=== PATIENT | female | born 1975 | race Caucasian/White ===

== ENCOUNTER 2024-10-24 18:03 | Emergency (ER) | payer SELFPAY ==
[2024-10-24 18:17] VITALS: BP 145/98
[2024-10-24 18:50] VITALS: BMI 30.4
[2024-10-24 18:58] LABS: % Basophils 0.3 % (0-2); % Immature Granulocytes 0.3 % (0-0.5); % Lymphocytes 31.2 % (20.5-51.1); % Monocytes 8.9 % (1.7-9.3); % Neutrophils 57.3 % (42.2-75.2); Absolute Eosinophils 0.1 10^3/uL (0-0.7); Absolute Monocytes 0.6 10^3/uL (0.1-0.6); Absolute Neutrophils 3.7 10^3/uL (1.4-6.5); Hematocrit 40.6 % (37.0-47.0); Hemoglobin 14.6 g/dL (12.0-16.0); Mean Corpuscular Hgb 32.1 pg (27.0-31.0); Mean Corpuscular Volume 89.2 fL (81.0-99.0); Mean Platelet Volume 9.7 fL (7.4-10.4); Nucleated Red Blood Cells % 0 %; Platelet Count 236 10^3/uL (130-400); Red Blood Cell Count 4.55 10^6/uL (4.20-5.40); Red Cell Dist. Width 12.1 % (11.5-14.5); White Blood Cell Count 6.4 10^3/uL (4.8-10.8)
[2024-10-24 19:01] LABS: Urine Albumin 1+ (Neg - Trace); Urine Bilirubin Negative (Negative); Urine Character Clear (Clear); Urine Color Yellow; Urine Glucose Negative (Negative); Urine Ketone Negative (Negative); Urine Leukocyte Negative (Negative); Urine Nitrite Negative (Negative); Urine Occult Blood 1+ (Negative); Urine Specific Gravity 1.015 (<1.030); Urine Urobilinogen 2+ (Neg - 1+); Urine pH 6.5 (5.0-9.0)
[2024-10-24 19:11] LABS: ALT (SGPT) 24 U/L (0-35); AST (SGOT) 27 U/L (14-36); Albumin 4.9 g/dl (3.5-5.0); Alkaline Phosphatase 52 U/L (38-126); Blood Urea Nitrogen 18 mg/dl (7-17); Calcium 9.5 mg/dl (8.4-10.2); Carbon Dioxide 27 mmol/L (22-30); Chloride 103 mmol/L (98-107); Estimated Creatinine Clearance 76 ml/min; Glucose 103 mg/dl (70-99); Potassium 4.1 mmol/L (3.5-5.1); Sodium 142 mmol/L (135-145); Total Bilirubin 1.6 mg/dl (0.2-1.3); Total Protein 8.1 g/dl (6.3-8.2); eGFR > 60.00
[2024-10-24 19:22] LABS: Urine Amorphous Seen; Urine Bacteria Few (Negative); Urine Mucus Few; Urine Red Blood Cell 0-2 /HPF (0-2); Urine Squamous Cell 21-25 /LPF (Few); Urine White Cell 0-2 /HPF (0-5)
[2024-10-24] MEDS: TYLENOL 1000 MG PO (20:10)
[2024-10-24 22:12] VITALS: BP 129/89
[2024-10-24] MEDS: MOTRIN 800 MG PO (22:46)
[2024-10-24 23:00] VITALS: BP 147/103
--- NOTE | 2024-10-24 23:15 | ED.GENMED ---
History of Present Illness
<Rosalba Caldera NP - Last Filed: 10/26/24 22:42>
General
Chief Complaint: Flank Pain
Source: patient
Exam Limitations: none
Time Seen by Provider: 10/24/24 18:46
Nursing documentation reviewed up to this point in time: agreed with
History of Present Illness
History of Present Illness:
Patient to ED wtih complaint of left flank pain. States she developed buring with urination, frequency approx 1 week ago. She completed a course of Macrobid but states she now feels flank pain. She is concerned for Kidney infection. Denies
fever/chills. No history of kidney stones. Pain is worse with position changes. Brought self to ED for eval. Denies fever/chills n/v/d.
Past History
<Rosalba Caldera NP - Last Filed: 10/26/24 22:42>
Past History
ED Past Medical History: Asthma, GERD and Other (RA arthritis, asthma, cholecystectomy, carpal tunnel repair, exploratory laparoscopy, status post )
ED Past Surgical History: Cholecystectomy, (X 2), Gynecological (Ablation Uterine, Endocervical mass removed benign) and Orthopedic (Left shoulder rotator cuff, Right carpal tunnel)
Social History
Tobacco: Non-smoker
Alcohol: Occasional
Personal:
Living: with family
Family History
Family History: Other (Daughter with CBID. Dad with diabetes and hyperlipidemia. Mother with hypertension)
Review of Systems
<Rosalba Caldera NP - Last Filed: 10/26/24 22:42>
Review of Systems
Allergies reviewed?: Yes
All Other Systems: ROS reviewed and negative except as documented in HPI and ROS
Constitutional: Reports no symptoms
EENT: Reports no symptoms
Respiratory: Reports no symptoms
Cardiac: Reports no symptoms
ABD/GI: Reports no symptoms
: Reports flank pain (left flank pain)
Skin: Reports no symptoms
Neurological: Reports no symptoms
Psychiatric: Reports no symptoms
Phy Exam
<Rosalba Caldera NP - Last Filed: 10/26/24 22:42>
General Physical Exam
General Presentation: mild distress
General age: appears stated age
General Skin: warm and dry
General Habitus: normal
General Mental: alert
Gastrointestinal Exam
Gastrointestinal Exam: non tender and soft
Musculoskeletal Exam
Musculoskeletal Exam: neuro vasc intact and other (Left back and flank pain. Pain escalates wtih movement.)
Skin Exam
Skin Exam: normal color and warm/dry
Psychiatric Exam
Psychiatric Exam: normal mood/affect
Course
<Rosalba Caldera [employer]DO[employer] AD[employer]URE LEADER - Last Filed: 10/26/24 22:42>
Orders/Labs/Results
Orders:
Orders
10/24/24 18:47
Complete Blood Count/With Diff Urgent
Comprehensive Metabolic Panel Urgent
Urinalysis Reflex To Culture Urgent
Date Specimen was Collected: 10/24/24
Time Specimen was Collected: 18:23
Urine Microscopic Reflex Cult Urgent
10/24/24 19:28
CT Abd/pel Without Iv Or Oral Urgent
Comment:
Reason For Exam: left flank pain
10/24/24 20:06
Acetaminophen [Tylenol] 1,000 mg PO NOW STA
10/24/24 22:16
Ibuprofen [Motrin] 800 mg PO NOW STA
10/24/24 22:17
Pelvis (Non Obstetric) US [US Pelvis Only (non-obstetric)] Urgent
Comment:
Reason For Exam: pain
10/24/24 22:36
Ibuprofen [Motrin] 800 mg PO NOW STA
Abnormal Lab Results
10/24/24
18:47
MCH 32.1 H pg
(27.0-31.0)
BUN 18 H mg/dl
(7-17)
Glucose 103 H mg/dl
(70-99)
Total Bilirubin 1.6 H mg/dl
(0.2-1.3)
Ur Occult Blood Reflex 1+ A
(Negative)
Urine Urobilinogen 2+ A
(Neg - 1+)
Urine Bacteria (Reflex) Few A
(Negative)
Urine Albumin (Reflex) 1+ A
(Neg - Trace)
10/24/24 18:47
10/24/24 18:47
Vital Signs
Initial and Last Documented VS:
Initial Vital Signs
Temp Pulse Resp BP Pulse Ox
98.3 F 84 16 145/98 98
10/24/24 18:17 10/24/24 18:17 10/24/24 18:17 10/24/24 18:17 10/24/24 18:17
Last Documented Vital Signs
Temp Pulse Resp BP Pulse Ox
98.3 F 84 16 138/91 98
10/24/24 18:17 10/24/24 18:17 10/24/24 18:17 10/25/24 00:54 10/25/24 00:47
<Brandie Valdes, DO - Last Filed: 10/25/24 00:40>
Orders/Labs/Results
Orders:
Orders
10/24/24 18:47
Complete Blood Count/With Diff Urgent
Comprehensive Metabolic Panel Urgent
Urinalysis Reflex To Culture Urgent
Date Specimen was Collected: 10/24/24
Time Specimen was Collected: 18:23
Urine Microscopic Reflex Cult Urgent
10/24/24 19:28
CT Abd/pel Without Iv Or Oral Urgent
Comment:
Reason For Exam: left flank pain
10/24/24 20:06
Acetaminophen [Tylenol] 1,000 mg PO NOW STA
10/24/24 22:16
Ibuprofen [Motrin] 800 mg PO NOW STA
10/24/24 22:17
Pelvis (Non Obstetric) US [US Pelvis Only (non-obstetric)] Urgent
Comment:
Reason For Exam: pain
10/24/24 22:36
Ibuprofen [Motrin] 800 mg PO NOW STA
Abnormal Lab Results
10/24/24
18:47
MCH 32.1 H pg
(27.0-31.0)
BUN 18 H mg/dl
(7-17)
Glucose 103 H mg/dl
(70-99)
Total Bilirubin 1.6 H mg/dl
(0.2-1.3)
Ur Occult Blood Reflex 1+ A
(Negative)
Urine Urobilinogen 2+ A
(Neg - 1+)
Urine Bacteria (Reflex) Few A
(Negative)
Urine Albumin (Reflex) 1+ A
(Neg - Trace)
10/24/24 18:47
10/24/24 18:47
Vital Signs
Initial and Last Documented VS:
Initial Vital Signs
Temp Pulse Resp BP Pulse Ox
98.3 F 84 16 145/98 98
10/24/24 18:17 10/24/24 18:17 10/24/24 18:17 10/24/24 18:17 10/24/24 18:17
Last Documented Vital Signs
Temp Pulse Resp BP Pulse Ox
98.3 F 84 16 138/91 98
10/24/24 18:17 10/24/24 18:17 10/24/24 18:17 10/25/24 00:54 10/25/24 00:47
<Rosalba Caldera NP - Last Filed: 10/26/24 22:42>
*Radiology
Radiology exam reviewed: radiology read reviewed
*Pulse Oximetry
Patient hypoxic: no
*Critical Care Note
Total Time (30-74mins, 75-104mins- exclusive of procedures): Not Applicable
<Rosalba Caldera NP - Last Filed: 10/26/24 22:42>
Update Note
Update Note:
Patient to ED wt complaint of left flank pain. She treated self for suspected UTI 1 week ago with course of macrobid. Now reports flank pain. CT results reviewed with her. No findings to explain her pain. SHe now reports ongoing pelvic pain.
States she was treated for an endocervical lesion a few years ago and is concerned that there is an issue in the pelvis causing her pain. SHe states she did not do the follow up visits as recommended. I reviewed the CT report with her and noted
that there were no concerning findings that would explain her pain. Labs normal. UA without evidence of UTI. Will send for pelvic US. She is aware that she will still need to follow up with her talend developer.
Her exam reveals left back and flank pain that is worse with movement. Hurts to sit, change postitions, twist. I suggested to her that the pain was related to a musculoskeletal issue but she is convinced that this is not the case. She does have a
history of RA but states she doesnt get back pain. Given Tylenol in ED without improvement. She was just given a dose of Ibuprofen. Will continue on with plan for US.
ED Attending Note
<Rosalba Caldera NP - Last Filed: 10/26/24 22:42>
-
Portions of this chart may have been created with voice recognition software.� Occasional wrong word or��sound alike� substitutions may have occurred due to the inherent limitations of voice recognition software.
<Brandie Valdes DO - Last Filed: 10/25/24 00:40>
ED Attending Note
Patient seen and examined by attending physician: Yes
I performed the substantive portion of visit, reviewed & personally made and approve the management plan that is documented in note by myself or EVA.: Yes
I performed a history and physical exam of patient and discussed management with resident, I reviewed resident's note and agree with documented findings and plan of care.: Yes
ED Attending Note:
49-year-old female presenting to the emergency for left flank pain. Symptoms have been present for the past week, worse with movement. Patient's primary concern is for some underlying renal infection, urine infection. Patient seen by EVA prior to
my assessment with extensive workup, underlying suspicion for musculoskeletal quality to symptoms. Vital signs within normal limits. Reproducible tenderness to the flank region. Urine without sign of infection, laboratory analysis unremarkable.
Patient had CT abdominal imaging, without acute process. On EVA reassessment, now complaining of pelvic discomfort. Denies any discharge. Patient signed out to me pending ultrasound imaging of the pelvis.
Ultrasound without any acute process. On my assessment, patient is resting comfortably, no acute distress. Mild tenderness to the left flank, otherwise nontoxic. No tenderness to abdomen. Continue to suspect musculoskeletal etiology to pain.
Ultimately feel stable for discharge with supportive therapy outpatient, PCP follow-up. Return precautions discussed.
Discharge Plan
Departure
Patient Disposition: Home (Routine Discharge)
Date of Disposition: 10/25/24
Time of Disposition: 00:40
Patient with high blood pressure during this ER visit?: Yes
Condition: Fair
Covid-19: Not Applicable
Discharge Problem:
Flank pain
Instructions: Flank Pain (DC)
Prescriptions:
No Action
sulfamethoxazole-trimethoprim 800 MG/160 MG tablet
1 tab PO BID Qty: 10 0RF
tramadol [Ultram] 50 MG tablet
50 mg PO Q6HPRN PRN (Reason: pain) Qty: 10 0RF
ascorbic acid (vitamin C) [Vitamin C] 500 MG tablet
1,000 mg PO BID Qty: 56 0RF
Rx Instructions:
Take 1,000 mg twice a day for 14 days
aspirin 81 MG tablet,chewable
81 mg PO DAILY Qty: 14 0RF
Rx Instructions:
Take 81 mg daily for 14 days
zinc sulfate 220 MG capsule
220 mg PO DAILY Qty: 14 0RF
Rx Instructions:
Take 220 mg daily for 14 days
cholecalciferol (vitamin D3) 1,000 UNITS tablet
2,000 units PO DAILY Qty: 28 0RF
Rx Instructions:
Take 2,000 units daily for 14 days
Referrals:
Michael Coker DO [Family Provider] - Follow up in 2-3 days
Activity Restrictions/Additional Instructions:
Follow up with your keno writer/runner as discussed for continued care related to your history of endocervical lesion.
Interventions
Interventions:
*Risk Screen - Suicide Last Done: 10/24/24 18:17
*General Assessment Last Done: 10/24/24 18:17
*Neglect/Abuse Screening Last Done: 10/24/24 18:17
*ED- Fall Risk Assessment Last Done: 10/24/24 20:00
*ED COVID-19 Vaccine History Last Done: 10/24/24 18:17
*Nursing Disposition Last Done: 10/25/24 01:11
IR-Fhmvva-Qohwbbkjkf Assessment Last Done: 10/24/24 18:50
ED-Female Genitourinary Assessment Last Done: 10/24/24 18:50
Discharge Date and Time
Discharge Date/Time: 10/25/24 01:14
Print Language: TONGAN
[2024-10-25 00:18] VITALS: BP 156/105
[2024-10-25 00:54] VITALS: BP 138/91
--- NOTE | 2024-10-26 19:03 | EDRN ---
pt called to get her urine micro results. When we tried to explain to pt that she will get a call when her results are in, pt started to raise her voice and started to yell ' who is going to call me', when am I going to get the results'. Tried to
explain to the patient again, they will call you when they get the results ;which will probably be Sunday. pt sts I want to talk to the director I see her number on my papers I am calling her and hung up the phone.
== END 2024-10-25 01:14 | disposition home or self-care (01) ==
LOC: EMR 18:03
PROVIDERS: Emergency Medicine; EMERGENCY PHYSICIAN Student in an Organized Health Care Education/Training Program; FAMILY PHYSICIAN Family Medicine
DX: R10.9 Unspecified abdominal pain (principal); R03.0 Elevated blood-pressure reading, without diagnosis of hypertension
CPT/HCPCS: 99285; 74176; 76856; 80053; 81003; 81015; 85025